=== PATIENT | female | born 1975 | race Caucasian/White ===

== ENCOUNTER 2022-05-09 07:57 | Outpatient (CLI) | payer MEDICARE, MEDICAID, SELFPAY ==
--- NOTE | 2022-05-09 06:00 | DI.RAD_ITS ---
Exam(s) XR PAIN CLINIC FLUORO JOINT IN EXAM: XR PAIN CLINIC FLUORO JOINT IN CLINICAL HISTORY: Dx: Knee pain TECHNIQUE: 2D and realtime digital imaging was performed. Fluoroscopy was provided for the referrin g provider for guidance with performing a right knee genicular nerve block. . COMPARISON: No exams were available for comparison FINDINGS: Please see procedure note for details. Fluoro time 51.8 seconds RADIATION DOSE DELIVERED: Ka,r=3.38 mGy
[2022-05-09 08:06] VITALS: BP 138/100; PULSE 68; RESP 20; TEMP 36.2; O2SAT 98
--- NOTE | 2022-05-09 08:41 | PDOC.PAIN_ITS ---
Date of service: 05/09/22 Time of Service: 08:45 Pain Clinic Procedure Note Procedure Note Procedure Note: RIGHT GENICULAR NERVE BLOCK Date of Service: May 09, 2022 Patient: Chrissy Moreno Provider: Jagdeep Reyes DO, MPH Pre-operative diagnosis: Knee pain Post-operative diagnosis: Same Pre-procedure pain: VAS= 6/10 COMMENTS: I evaluated her in the clinic last week. Chrissy Moreno has been [facility] for RIGHTgenicular nerve block. Chrissy was interviewed and the medical record reviewed. There were no medical, pharmacologic, radiographic or other structural contraindications to attempting fluoroscopically guided RIGHT genicular nerve block. Risks and potential side effects as well as potential benefit of the procedure were reviewed with Chrissy , and HER voiced concerns were addressed. After I believed that the patient was completely informed, the printed consent form was signed. Standard time-out procedure was performed. Chrissy was placed in the supine position on the fluoroscopy table and automated blood pressure cuff and pulse oximeter applied. The skin entry points for approaching RIGHT superolateral genicular nerve, the superomedial genicular nerve, the terminal branch of the nerve vastus intermedius and the inferomedial genicular was identified under the most advantageous fluoroscopic view and marked. Following thorough Chlorhexadine preparation of the skin and draping, 1% lidocaine infiltration of the skin entry point and subcutaneous tissues was accomplished using a 1.5 25G needle. Next, the 3.5 25G spinal needle was advanced to os at the location of the specific nerve root using fluoroscopic guidance. Next, 1 ml of 1% Lidocaine was injected at each site. The needles were removed without difficulty. Chrissy's vital signs were stable throughout the procedure and were as recorded in the docflowsheet by the nursing staff. If given, dosages of intravenous drugs for anxiolysis and analgesia were documented in MAR. Follow up plans and appointments were discussed with the Chrissy . Post procedure instruction was given as documented in nursing documentation and having met discharge criteria, Chrissy was [facility] from the [facility]. COMMENTS: No apparent complications. Post-procedure pain: VAS = 2/10. The patient will keep track of her RIGHT knee pain over the next four hours. If Chrissy has sufficient pain relief, Chrissy will be a candidate for radiofrequency ablation at the same nerves. Eduardo WJ1, Ronnie SJ, Silas JG, Haris JG, Judd ROCHA, Park PH, Tamez JW. Radiofrequency treatment relieves chronic knee osteoarthritis pain: a double-blind randomized controlled trial. Pain. 2011 Jul;152(3):481-7. doi: 10.1016/j.pain.2010.09.029. Heike S1, Kareem ON2, Casandra Y3, ?zl?lerar P2, Kenneth U1, Martin ?m?rl? I. Which one is more effective for the clinical treatment of chronic pain in knee osteoarthritis: radiofrequency neurotomy of the genicular nerves or intra- articular injection? Int J Rheum Dis. 2016 Dec 12. F/U with our office by phone to let us know her 1-4 hour post-procedure pain VAS scores to the right knee. Jagdeep Reyes DO, MPH [facility]
[2022-05-09 08:53] VITALS: PULSE 65; O2SAT 100
[2022-05-09] MEDS: Bupivacaine 0.5% Pres-Free 10 ML VIAL IJ (08:54)
[2022-05-09] MEDS: Omnipaque 240 MG/ML 50 ML BTL IJ (08:54)
== END 2022-05-09 07:58 | disposition home or self-care (01) ==
LOC: PC 07:57
PROVIDERS: PCP Family Medicine; Visit Provider Preventive Medicine Occupational Medicine
DX: M25.561 Pain in right knee (principal)
CPT/HCPCS: 64454; 77002; Q9967

== ENCOUNTER 2022-06-20 11:21 | Outpatient (CLI) | payer MEDICARE, MEDICAID, SELFPAY ==
--- NOTE | 2022-06-20 06:00 | DI.RAD_ITS ---
Exam(s) XR PAIN CLINIC FLUORO JOINT IN EXAM: XR PAIN CLINIC FLUORO JOINT IN CLINICAL HISTORY: Dx: Right Knee Pain. TECHNIQUE: Fluoroscopy was provided for the referring physician for guidance with performing pain cl inic injection procedure. COMPARISON: No exams were available for comparison FINDINGS: Please see procedure note for details. Fluoro time: 62.7 seconds RADIATION DOSE DELIVERED: varsha Wu=4.94 mGy
[2022-06-20 11:49] VITALS: BP 143/99; PULSE 79; RESP 20; TEMP 36.8; O2SAT 99
[2022-06-20] MEDS: fentaNYL 100 MCG/2 ML VIAL IVP ×2 (12:27→12:44)
[2022-06-20] MEDS: Midazolam 2 MG/2 ML VIAL IVP (12:27)
[2022-06-20] MEDS: Lactated Ringers 500 ML 80 ML IV (12:27)
[2022-06-20 13:00] VITALS: BP 138/89; PULSE 77; RESP 15; O2SAT 100
--- NOTE | 2022-06-20 13:00 | PDOC.PAIN_ITS ---
Date of service: 06/20/22 Time of Service: 13:00 Pain Clinic Procedure Note Procedure Note Procedure Note: RIGHT GENICULAR NERVE RADIOFREQUENCY ABLATION WITH THE AVENOS MACHINE Date of Service: June 20, 2022 Patient: Chrissy Moreno Provider: Jagdeep Reyes DO, MPH Pre-operative diagnosis: Right knee pain Post-operative diagnosis: Same Pre-procedure pain VAS was 7/10 COMMENTS: Previous Genicular nerve block to the RIGHT knee. Chrissy Moreno has been referred to the [facility] for RIGHT genicular nerve radiofrequency ablation. Chrissy was interviewed and the medical record reviewed. There were no medica l, pharmacologic, radiographic or other structural contraindications to attempting fluoroscopically guided RIGHT genicular nerve radiofrequency ablation. Risks and potential side effects as well as potential benefit of the procedure were reviewed with Chrissy Moreno , and HER voiced concerns were addressed. After I believed that the patient was completely informed, the printed consent form was signed. Standard time-out procedure was performed. Chrissy was placed in the supine position on the fluoroscopy table and automated blood pressure cuff and pulse oximeter applied. The skin entry points for approaching RIGHT superolateral genicular nerve, the suprapatella nerve, the superomedial genicular nerve and the inferomedial genicular was identified under the most advantageous fluoroscopic view and marked. Following thorough Chlorhexadine preparation of the skin and draping, 1% lidocaine infiltration of the skin entry point and subcutaneous tissues was accomplished using a 1.5 25G needle. Next, the 10 cm 18G RF Cannula with a 10 mm active tip was advanced to os at the location of the specific nerve roots (4) using fluoroscopic guidance. Next, sensory and motor testing was performed and no abnormal findings were found. Next, 1 cc of 2% Lidocaine was injected at each site. The lesion was then created with 80 degrees C for 90 seconds. Each needle was advance 1 cm and the lesion was completed again. Each cannula was advanced until the tip reached the posterior aspect of the bone shaft. 1/4 cc of Depomedrol (40 mg/cc) was then injected at each site followed by 2 cc of 0.5% Bupivacaine as the needle was withdrawn. The needles were removed without difficulty. Chrissy's vital signs were stable throughout the procedure and were as recorded in the docflowsheet by the nursing staff. If given, dosages of intravenous drugs for anxiolysis and analgesia were documented in JUL. Follow up plans and appointments were discussed with the Chrissy Moreno . Post procedure instruction was given as documented in nursing documentation and having met discharge criteria, Chrissy was discharged from the [facility]. COMMENTS: No complications. Post-procedure pain VAS was 2/10. If she receives at least 6 months of pain relief, this procedure can be repeated. Clark WJ1, Ronnie SJ, Silas JG, Haris JG, Dutch ROCHA, Park PH, Dashawn JW. Radiofrequency treatment relieves chronic knee osteoarthritis pain: a double-blind randomized controlled trial. Pain. 2010;152(3):481-7. doi: 10.1016/j.pain.2010.09.029. Heike S1, Kareem ON2, Casandra Y3, ?zl?bridget P2, Kenneth U1, Martin ?m?rl? I. Which one is more effective for the clinical treatment of chronic pain in knee osteoarthritis: radiofrequency neurotomy of the genicular nerves or intra- articular injection? Int J Rheum Dis. 2016 Dec 28. F/U with our office as needed Jagdeep Reyes DO, MPH [facility]
[2022-06-20] MEDS: methylPREDNISolone ACETATE 40 MG/ML VIAL IJ (13:35)
[2022-06-20] MEDS: Lidocaine 2% Multi-Dose 20 ML VIAL IJ (13:36)
[2022-06-20] MEDS: Bupivacaine 0.5% Pres-Free 10 ML VIAL IJ (13:36)
== END 2022-06-20 11:22 | disposition home or self-care (01) ==
LOC: PC 11:22
PROVIDERS: PCP Family Medicine; Visit Provider Preventive Medicine Occupational Medicine
DX: M25.561 Pain in right knee (principal)
CPT/HCPCS: 64624; 77002; J1030; J2250; J3010; J3490